=== PATIENT | male | born 1985 | race African-American/Black ===

== ENCOUNTER 2020-12-20 20:36 | Emergency (ER) | payer BC, SELFPAY ==
[2020-12-20 20:42] VITALS: BP 146/90; PULSE 99; RESP 14; TEMP 37.2; O2SAT 96
[2020-12-20 21:27] LABS: COVID19 -Nasal RAPID Negative (Negative)
[2020-12-20 23:18] VITALS: BP 140/90; PULSE 96; TEMP 36.9; O2SAT 98
--- NOTE | 2020-12-20 23:47 | ED_ITS ---
HPI - Recheck/Abnormal Lab/Rx General Chief Complaint: Recheck/Abnormal Lab/Rx Stated Complaint: was sick, needs a Covid test to go back to work Time Seen by Provider: 12/20/20 21:59 Source: patient Mode of arrival: Ambulatory Limitations: no limitations History of Present Illness HPI narrative: Patient is a 35-year-old male who presents with needing COVID test return to work. He was out the last 3 days with body aches fever and chills. He says he was unable to go to work at upper respiratory head like cold. No loss of taste or smell no cough or shortness of breath. For the last 24 hours he has been afebrile and overall feels better. He has not received his COVID vaccine. Related Data Allergies Allergy/AdvReac Type Severity Reaction Status Date / Time No Known Drug Allergies Allergy Verified 12/20/20 21:33 Review of Systems Review of Systems ROS Unobtainable: All systems reviewed & are unremarkable except as noted in HPI and below Constitutional Constitutional: Reports body ache(s), Reports chills, Reports fatigue, Reports fever(s) and Denies frequent falls ENT Ears, Nose, Mouth, and Throat: Denies change in voice, Denies dizziness, Denies neck pain, Denies sinus pain and Denies sore throat Cardiovascular Cardiovascular: Denies chest pain, Denies irregular heart rhythm, Denies lightheadedness, Denies palpitations, Denies dyspnea, Denies dyspnea on exertion and Denies orthopnea Respiratory Respiratory: Denies cough, Denies dyspnea, Denies dyspnea on exertion and Denies wheezing Gastrointestinal Gastrointestinal: Denies abdominal pain, Denies change in bowel habits, Denies diarrhea, Denies nausea and Denies vomiting Musculoskeletal Musculoskeletal: Denies back pain, Denies myalgias, Denies neck pain and Denies numbness Integumentary/Breasts Skin/Breast: Denies pruritus, Denies erythema, Denies rash and Denies wounds Neurologic Neurologic: Denies behavioral changes, Denies confusion, Denies dizziness, Denies frequent falls and Denies numbness Psychiatric Psychiatric: Denies behavioral changes and Denies confusion Endocrine Endocrine: Reports fatigue and Denies palpitations Allergic/Immunologic Allergic/Immunologic: Denies wheezing Patient History Medical History Patient denies medical problems Social History Smoking Status: Never smoker Smoking Status: Never smoker alcohol intake frequency: 0-2 drinks per day Substance Use Type: does not use Exam Initial Vital Signs Initial Vital Signs: Vital Signs Temperature 98.9 F 12/20/20 20:42 Pulse Rate 99 H 12/20/20 20:42 Respiratory Rate 14 12/20/20 20:42 Blood Pressure 146/90 H 12/20/20 20:42 Pulse Oximetry 96 12/20/20 20:42 GENERAL: Alert well-appearing 35-year-old male and in no acute distress. HEENT: Head atraumatic,EOMI, pupils reactive, face symmetric, moist mucous membranes CARDIOVASCULAR: Regular rate and rhythm without murmurs, rubs or gallops. RESPIRATORY: Breath sounds equal bilaterally, no wheezes rales or rhonchi. ABDOMEN: Soft, nontender. Normoactive bowel sounds all 4 quadrants. No guarding or rebound. EXTREMITIES: Normal range of motion, no clubbing or edema. Neurovascularly intact NEUROLOGICAL: Alert and oriented x4.Normal gait and speech. SKIN: Warm, dry, no laceration, no petechiae, no rashes or lesions. Course Orders Ordered: ED Orders 12/20/20 20:45 COVID19 -Nasal swab/Pre-Proc Stat Vital Signs Vital signs: Vital Signs - 8 hr 12/20/20 20:42 12/20/20 23:18 12/20/20 23:58 Temperature 98.9 F 98.4 F Pulse Rate 99 H 96 H 75 Respiratory Rate 14 Blood Pressure 146/90 H 140/90 138/83 Pulse Oximetry 96 98 98 MDM - Recheck/Abnormal Lab/Rx Lab Data Labs: Lab Results 12/20/20 Range/Units 20:45 SARS-CoV-2 (PCR) Negative (Negative) [facility] Narrative Medical decision making narrative: Patient is currently afebrile and appears well. He seems to have had some upper respiratory like infection for the last 3 days. I have discussed with him still possibility of COVID and recommend retesting 5 days after symptoms started however he states his symptoms have completely resolved and would like to go back to work. He has been afebrile for the last 24 hours. Discharge Plan Departure Patient Disposition: Home Clinical Impression: Acute upper respiratory infection Instructions: DI for Viral Upper Respiratory Infection -- Adult Activity Restrictions/Additional Instructions: *You have been diagnosed with upper respiratory infection *What to do: Today your COVID test is negative. However his other can be a delay in positive test up to a 7 days. I recommend that you be tested again next week to be sure that your COVID is negative *Continue to take medications as directed *Follow up with your primary care provider in 2-3 days *Return to ER if you should have increasing shortness of breath and fever, loss of taste or smell or any new, worsening or concerning symptoms
[2020-12-20 23:58] VITALS: BP 138/83; PULSE 75; O2SAT 98
== END 2020-12-21 00:01 | disposition home or self-care (01) ==
PROVIDERS: Emergency Provider Emergency Medicine
DX: J06.9 Acute upper respiratory infection, unspecified (principal); Z20.822 Contact with and (suspected) exposure to COVID-19
CPT/HCPCS: 87635; 99282; C9803

== ENCOUNTER 2021-04-17 18:05 | Emergency (ER) | payer OTHER, SELFPAY ==
[2021-04-17 18:41] VITALS: BP 167/76; PULSE 66; RESP 14; TEMP 37; O2SAT 97; BMI 29.2
[2021-04-17 19:33] LABS: COVID19 -Nasal RAPID POSITIVE (Negative)
--- NOTE | 2021-04-18 04:17 | ED_ITS ---
HPI - Recheck/Abnormal Lab/Rx General Chief Complaint: Recheck/Abnormal Lab/Rx Stated Complaint: Needs a COVID Test Time Seen by Provider: 04/17/21 19:06 Source: patient Mode of arrival: Ambulatory Limitations: no limitations History of Present Illness HPI narrative: 35-year-old male, vapes, without chronic medical problems presents with another roommate and a chief complaint of exposure to a COVID positive patient on Tuesday. They have a roommate who was out of town at a large music festival and came home with symptoms and just tested positive yesterday. He has not received vaccination. He has a very mild, generalized headache and some mild chills but is otherwise well. Denies runny nose or sore throat. Denies chest pain or cough. He has no nausea, vomiting or diarrhea Related Data Allergies Allergy/AdvReac Type Severity Reaction Status Date / Time No Known Drug Allergies Allergy Verified 12/20/20 21:33 Review of Systems Review of Systems Narrative: GENERAL: See HPI HEENT: Denies sinus pain, ear pain, sore throat, difficulty swallowing, dizziness. RESPIRATORY: Denies dyspnea, cough, wheezing, hemoptysis, sputum. CARDIOVASCULAR: Denies chest pain, palpitations, orthopnea, edema, GASTROINTESTINAL: Denies nausea, vomiting, abdominal pain, diarrhea, constipation, melena. : Denies dysuria, frequency, incontinence, hematuria, urinary retention. MUSCULOSKELETAL: denies weakness, joint pain, or bony pain SKIN: Denies rash, skin lesions, or other NEUROLOGIC: See HPI PSYCHIATRIC: No concerning psychosocial issues. 12 point review of systems is negative except for those stated above Patient History Medical History Patient denies medical problems Social History Smoking Status: Current every day smoker Smoking Status: Current every day smoker tobacco type: vaping alcohol intake frequency: 0-2 drinks per day Substance Use Type: marijuana Exam Narrative Exam Narrative: GEN: AOx3 and in mild distress EYES: Pupils are equal, round, and reactive to light and accommodation. Extraoccular muscles are intact bilaterally. There is no subconjunctival hemorrhage or exudate. CHEST: Lungs are clear to auscultation bilaterally and free of wheezes, rales, or rhonchi. Heart rate is regular rhythm, there are no murmurs, clicks, rubs, or gallops. There is no chest wall tenderness. ABD: Abdomen is soft and nontender. There is no guarding or rebound. Bowel sounds are normal in all 4 quadrants. There is no mass or organomegaly. EXT: Full painless ROM of all extremities with no loss of sensation or strength. SKIN: Warm, pink, and dry. No erythema or rash Initial Vital Signs Initial Vital Signs: Vital Signs Temperature 98.6 F 04/17/21 18:41 Pulse Rate 66 04/17/21 18:41 Respiratory Rate 14 04/17/21 18:41 Blood Pressure 167/76 H 04/17/21 18:41 Pulse Oximetry 97 04/17/21 18:41 MDM - Recheck/Abnormal Lab/Rx Lab Data Labs: Lab Results 04/17/21 Range/Units 18:54 SARS-CoV-2 (PCR) Positive H (Negative) MDM Narrative Medical decision making narrative: Patient is very well-appearing, exposed to COVID on Tuesday with mild symptoms today. No signs of respiratory distress. No indication for significant workup. Patient given extensive return precautions and questions answered to his apparent satisfaction Discharge Plan Departure Patient Disposition: Home Clinical Impression: COVID-19 Instructions: DI for COVID-19 (Suspected or Confirmed ) Activity Restrictions/Additional Instructions: *You have been diagnosed with [ COVID-19] *What to do: * per recommendations from the CDC and the [facility] Department of Health * stay home except to get medical care. Restrict activities outside your home, except for getting medical care. Do not go to work, school, or public areas. Avoid using public transportation, ride sharing, or taxis. * separate yourself from other people in your home. * call ahead before visiting your doctor * Wear a facemask * Cover your coughs and sneezes * Clean your hands often * Avoid sharing household items * Clean all high-touch services every day * Monitor your symptoms and seek prompt medical attention if your illness is worsening, particularly with difficulty in breathing. You may discontinue your isolation when: 1. You have been fever-free for at least 24 hours without the use of fever reducing medication, AND 2. Your symptoms are getting better 3. At least 10 days have passed since symptoms first appeared Individuals with laboratory confirmed COVID-19 who have not had any symptoms may discontinue home isolation when at least 10 days have passed since the date of their first COVID-19 diagnostic test and have had no subsequent illness Please consider getting a pulse oximeter on line at [facility], it measures the percentage of oxygen your blood. If this number dips into the 80s you would need to return to the emergency department
== END 2021-04-17 20:05 | disposition home or self-care (01) ==
PROVIDERS: Emergency Provider Emergency Medicine
DX: U07.1 COVID-19 (principal)
CPT/HCPCS: 87635; 99281; 99282; C9803

== ENCOUNTER → 2025-01-17 13:14 | Outpatient (CLI) | payer OTHER, SELFPAY ==
--- NOTE | 2025-01-17 13:16 | DI.RAD.S_ITS ---
PROCEDURE: XR FOOT LT MIN 3V INDICATIONS: Pain base of great toe TECHNIQUE: 3 views of the foot were acquired. COMPARISON: None. FINDINGS: Bones: No fractures or dislocations. No suspicious bony lesions. Soft tissues: No tibiotalar joint effusion. Achilles tendon appears normal. IMPRESSION: No definite radiographic abnormality. If pain persists with conservative management, consider repeat plain films or cross sectional imaging such as CT or MRI for further assessment. Dictated by: Carlito Perrin [facility] Interpreted: Krysta Beltrán MD on 01/19/2025 at 11:58 Transcribed by: TOLU on 01/19/2025 at 11:58 Approved by: Krysta Beltrán M.D. on 01/21/2025 at 7:42
== END ==
PROVIDERS: Referring Provider Nurse Practitioner Family; Visit Provider Nurse Practitioner Family
DX: M79.673 Pain in unspecified foot (principal)
CPT/HCPCS: 73630